=== PATIENT | female | born 1990 | race African-American/Black ===

== ENCOUNTER 2017-07-30 11:38 | Emergency (ER) | payer OTHER ==
[2017-07-30 11:45] VITALS: TEMP 98.8; BMI 26.6
--- NOTE | 2017-07-30 12:05 | PDOC ---
History of Present Illness - General Chief Complaint: Vaginal Bleeding Stated Complaint: VAGINAL BLEEDING (8 WKS ) Time Seen by Provider: 07/30/17 11:56 Exam Limitations: No Limitations - History of Present Illness Initial Comments: 07/30/17 12:05 26 yr female 1AB 1 ectopic 1 still born 9 months , history or herpes presents with vag bleeding and clots started 4 days ago. LMP 06/09/17. Pt had cramping 4 days ago none now. Past History - Past Medical History Allergies/Adverse Reactions: Allergies Allergy/AdvReac Type Severity Reaction Status Date / Time No Known Allergies Allergy Verified 07/30/17 11:45 Home Medications: Ambulatory Orders NK [No Known Home Medication] 07/30/17 COPD: No Other medical history: [id number] 1 stillborn 9 months - Suicide/Smoking/Psychosocial Hx Smoking History: Never smoked Have you smoked in the past 12 months: No Information on smoking cessation initiated: No Hx Alcohol Use: No Drug/Substance Use Hx: No Substance Use Type: None Abd/GI Specific PMHX - Complaint Specific PMHX Colitis: No Diverticulitis: No Gall Bladder Disease: No GERD: No Hepatitis: No Irritable Bowel Synd (IBS): No Pancreatitis: No GI Ulcer Disease: No Review of Systems - Review of Systems Able to Perform ROS?: Yes Is the patient limited Mongolian proficient: No Constitutional: No: Symptoms Reported HEENTM: No: Symptoms Reported Respiratory: No: Symptoms reported Cardiac (ROS): No: Symptoms Reported ABD/GI: Yes: Symptoms Reported : No: Symptoms Reported, Flank Pain *Physical Exam - Vital Signs Last Vital Signs Temp Pulse Resp BP Pulse Ox 98.8 F 80 18 127/79 100 07/30/17 11:41 07/30/17 11:41 07/30/17 11:41 07/30/17 11:41 07/30/17 11:41 - Physical Exam General Appearance: Yes: Nourished, Appropriately Dressed HEENT: positive: EOMI, ADELSO Neck: positive: Supple Respiratory/Chest: positive: Lungs Clear, Normal Breath Sounds Cardiovascular: positive: Regular Rhythm, Regular Rate Female Pelvic Exam: positive: normal external exam, adnexal tenderness, vaginal bleeding (brown blood light flow, spotting ). negative: CMT Gastrointestinal/Abdominal: positive: Normal Bowel Sounds, Tender (suprapubic tender to touch ) Musculoskeletal: positive: Normal Inspection Extremity: positive: Normal Capillary Refill, Normal Inspection, Normal Range of Motion Integumentary: positive: Normal Color, Dry, Warm Neurologic: positive: Fully Oriented, Alert, Normal Mood/Affect, Normal Response , Motor Strength /5 Medical Decision Making - Medical Decision Making 07/30/17 12:09 cc: vag bleeding had clots 4 days ago LMP 06/09/17 states light cramping 4 days ago no back pain or abd pain now will check labs, pelvic US r/o miscarriage
[2017-07-30 12:36] LABS: BASO % 0.7 % (0-2.0); EOS % 1.4 % (0-4.5); HEMATOCRIT 32.8 % (32.4-45.2); HEMOGLOBIN 11.2 GM/dL (10.7-15.3); LYMPH % 31.6 % (8-40); MEAN CELL VOLUME 76.3 fl (80-96); MEAN PLT VOLUME 8.1 fl (7.5-11.1); MONO % 7.9 % (3.8-10.2); NEUT % 58.4 % (42.8-82.8); PLATELET COUNT 288 K/MM3 (134-434); RBC 4.29 M/mm3 (3.60-5.2); RDW 17.2 % (11.6-15.6); WHITE BLOOD COUNT 9.1 K/mm3 (4.0-10.0)
[2017-07-30 12:41] LABS: HCG,QUALITATIVE URINE POSITIVE
[2017-07-30 12:46] LABS: URINE APPEARANCE CLEAR; URINE BILIRUBIN NEGATIVE (NEGATIVE); URINE BLOOD 2+ (NEGATIVE); URINE COLOR LTYELLOW; URINE GLUCOSE (UA) NEGATIVE (NEGATIVE); URINE KETONE NEGATIVE (NEGATIVE); URINE NITRITE NEGATIVE (NEGATIVE); URINE PROTEIN NEGATIVE (NEGATIVE); URINE UROBILINOGEN NEGATIVE mg/dL (0.2-1.0)
[2017-07-30 12:48] LABS: INR 1.25 (0.82-1.09); PROTHROMBIN TIME (PATIENT) 14.1 SEC (9.98-11.88)
[2017-07-30 12:52] LABS: URINE LEUK ESTERASE 1+ (NEGATIVE)
[2017-07-30 14:29] LABS: EPI CELLS RARE /HPF (FEW); URINE BACTERIA RARE /hpf (NONE SEEN); URINE MUCUS RARE
[2017-07-30 15:10] VITALS: BP 115/71; PULSE 83
--- NOTE | 2017-07-30 15:55 | PDOC ---
*Physical Exam - Vital Signs Last Vital Signs Temp Pulse Resp BP Pulse Ox 98.8 F 83 18 115/71 100 07/30/17 11:41 07/30/17 15:09 07/30/17 15:09 07/30/17 15:09 07/30/17 15:09 ED Treatment Course - LABORATORY CBC & Chemistry Diagram: 07/30/17 12:12 - ADDITIONAL ORDERS Additional order review: Laboratory Results 07/30/17 07/30/17 07/30/17 14:30 12:12 12:12 PT with INR INR Beta HCG, Quant 28113.7 Urine Color Ltyellow Urine Appearance Clear Urine pH 6.0 Ur Specific Mears 1.013 Urine Protein Negative Urine Glucose (UA) Negative Urine Ketones Negative Urine Blood 2+ H Urine Nitrite Negative Urine Bilirubin Negative Urine Urobilinogen Negative Ur Leukocyte Esterase 1+ H Urine WBC (Auto) 5 Urine RBC (Auto) 2 Ur Epithelial Cells Rare Urine Bacteria Rare Urine Mucus Rare Urine HCG, Qual Positive Blood Type O POSITIVE Antibody Screen Negative 07/30/17 12:12 PT with INR 14.10 H INR 1.25 H Beta HCG, Quant Urine Color Urine Appearance Urine pH Ur Specific Mears Urine Protein Urine Glucose (UA) Urine Ketones Urine Blood Urine Nitrite Urine Bilirubin Urine Urobilinogen Ur Leukocyte Esterase Urine WBC (Auto) Urine RBC (Auto) Ur Epithelial Cells Urine Bacteria Urine Mucus Urine HCG, Qual Blood Type Antibody Screen 07/30/17 12:12 RBC 4.29 MCV 76.3 L MCHC 34.0 RDW 17.2 H MPV 8.1 Neutrophils % 58.4 Lymphocytes % 31.6 Monocytes % 7.9 Eosinophils % 1.4 Basophils % 0.7 Medical Decision Making - Medical Decision Making 07/30/17 15:53 Patient seen and evaluated with the nurse practitioner. I agree with the overall evaluation, assessment, and management with the following summary of visit: 26-year-old female LMP about, presents for evaluation of vaginal bleeding. Agree with exam as outlined Plan was for hCG, type and screen, ultrasound. Rh+, hCG 58,000, but ultrasound shows echogenic tissue without clear gestational sac or yolk sac, possibly concerning for molar requiring follow-up hCG and ultrasonography. Discussed with patient, will arrange follow-up at to [facility], understands return criteria. *DC/Admit/Observation/Transfer Diagnosis at time of Disposition: Molar - Discharge Dispostion Disposition: HOME Condition at time of disposition: Good - Referrals - Patient Instructions Printed Discharge Instructions: DI for Vaginal Bleeding During Additional Instructions: Activity as tolerated. Stay hydrated. Tylenol 1000 mg every 8 hours and/or ibuprofen 600 mg every 8 hours as needed for pain. As discussed, the ultrasound performed today is inconclusive but could be concerning for a Molar , which is abnormal. A repeat hormone test and ultrasound needs to be performed within 48-72 hours. YOU HAVE AN APPOINTMENT AT [address] [place] [address] ON SUNDAY AT 8:30AM. If you cannot be seen there for any reason, return to the emergency department. You should follow up with [facility] as soon as possible regarding today's emergency department visit. Return to the emergency department for any new or concerning symptoms, particularly persistent or worsening bleeding, persistent or worsening pain, fevers or chills. - Post Discharge Activity
== END 2017-07-30 16:34 | disposition home or self-care (01) ==
LOC: JER 11:38
DX: O26.891 Other specified pregnancy related conditions, first trimester (principal); O20.0 Threatened abortion; O02.0 Blighted ovum and nonhydatidiform mole; Z3A.01 Less than 8 weeks gestation of pregnancy
CPT/HCPCS: 36415; 76817-TC; 81003; 81015; 84702; 84703; 85025; 85610; 86850; 86900; 86901; 99282-25

== ENCOUNTER 2017-07-30 23:41 | Emergency (ER) | payer OTHER ==
[2017-07-30 23:50] VITALS: BP 106/70; PULSE 87; TEMP 97.7; BMI 26.6
--- NOTE | 2017-07-31 00:49 | PDOC ---
History of Present Illness - General History Source: Patient Exam Limitations: No Limitations - History of Present Illness Initial Comments: 07/31/17 00:50 The patient is a 26 year old female, , approximately 6 weeks , who returns to the ED today for vaginal bleeding. The patient was seen in the ED earlier today. She had an US that demonstrated echogenic tissue without clear gestational sac or yolk sac, concerning for molar . She was discharged home to follow up with [facility]. The patient states she experienced a large amount of vaginal bleeding with large clots when she returned home. She became concerned and returned to the ED. <Kina Barnhart - Last Filed: 07/31/17 00:50> <Rosa Maria Nava - Last Filed: 07/31/17 01:12> - General Chief Complaint: Vaginal Bleeding Stated Complaint: VAGINAL BLEEDING ( 6 WKS ) Time Seen by Provider: 07/30/17 23:51 Past History <Kina Barnhart - Last Filed: 07/31/17 00:50> - Past Medical History COPD: No - Reproductive History (#): 4 Para: 0 Therapeutic (s) & number: Yes - Suicide/Smoking/Psychosocial Hx Smoking History: Unknown if ever smoked Have you smoked in the past 12 months: No Hx Alcohol Use: No Drug/Substance Use Hx: No Substance Use Type: None <Rosa Maria Nava - Last Filed: 07/31/17 01:12> - Past Medical History Allergies/Adverse Reactions: Allergies Allergy/AdvReac Type Severity Reaction Status Date / Time No Known Allergies Allergy Verified 07/30/17 11:45 Home Medications: Ambulatory Orders NK [No Known Home Medication] 07/30/17 Abd/GI Specific PMHX - Complaint Specific PMHX Colitis: No Diverticulitis: No Gall Bladder Disease: No GERD: No Hepatitis: No Irritable Bowel Synd (IBS): No Pancreatitis: No GI Ulcer Disease: No <Rosa Maria Nava - Last Filed: 07/31/17 01:12> Review of Systems - Review of Systems Able to Perform ROS?: Yes Comments:: 07/31/17 00:53 GENERAL/CONSTITUTIONAL: No fever or chills. No weakness. HEAD, EYES, EARS, NOSE AND THROAT: No change in vision. No ear pain or discharge. No sore throat. CARDIOVASCULAR: No chest pain or shortness of breath. RESPIRATORY: No cough, wheezing, or hemoptysis. GASTROINTESTINAL: No nausea, vomiting, diarrhea or constipation. GENITOURINARY: +Vaginal bleeding, suprapubic cramping. No dysuria, frequency, or change in urination. MUSCULOSKELETAL: No joint or muscle swelling or pain. No neck or back pain. SKIN: No rash NEUROLOGIC: No headache, vertigo, loss of consciousness, or change in strength/ sensation. ENDOCRINE: No increased thirst. No abnormal weight change. HEMATOLOGIC/LYMPHATIC: No anemia, easy bleeding, or history of blood clots. ALLERGIC/IMMUNOLOGIC: No hives or skin allergy. <Kina Barnhart - Last Filed: 07/31/17 00:50> *Physical Exam - Vital Signs Last Vital Signs Temp Pulse Resp BP Pulse Ox 97.7 F 87 18 106/70 99 07/30/17 23:49 07/30/17 23:49 07/30/17 23:49 07/30/17 23:49 07/30/17 23:49 - Physical Exam Comments: 07/31/17 00:55 GENERAL: Awake, alert, and fully oriented, in no acute distress HEAD: No signs of trauma EYES: PERRLA, EOMI, sclera anicteric, conjunctiva clear ENT: Auricles normal inspection, nares patent. Moist mucosa NECK: Normal ROM, supple, no JVD, or masses LUNGS: Breath sounds equal, clear to auscultation bilaterally. No wheezes, and no crackles HEART: Regular rate and rhythm, normal S1 and S2, no murmurs, rubs or gallops ABDOMEN: Soft, nontender, normoactive bowel sounds. No guarding, no rebound. No masses EXTREMITIES: Normal range of motion, no edema. No clubbing or cyanosis. No cords, erythema, or tenderness NEUROLOGICAL: Alert and oriented x 3. Moves all extremities. Face is symmetric. SKIN: Warm, Dry, normal turgor, no rashes or lesions noted. PELVIC: Small amount of blood in the vaginal vault, no clots. Cervical os is closed. No CMT or adnexal tenderness. <Kina Barnhart - Last Filed: 07/31/17 00:50> - Vital Signs Last Vital Signs Temp Pulse Resp BP Pulse Ox 97.7 F 87 18 106/70 99 07/30/17 23:49 07/30/17 23:49 07/30/17 23:49 07/30/17 23:49 07/30/17 23:49 <Rosa Maria Nava - Last Filed: 07/31/17 01:12> *DC/Admit/Observation/Transfer - Attestations Scribe Attestion: 07/31/17 00:57 Documentation prepared by Kina Barnhart, acting as medical record clerk for Rosa Maria Nava MD. <Kina Barnhart - Last Filed: 07/31/17 00:50> <Rosa Maria Nava - Last Filed: 07/31/17 01:12> Diagnosis at time of Disposition: Threatened , Molar - Discharge Dispostion Disposition: HOME Condition at time of disposition: Good - Patient Instructions Printed Discharge Instructions: DI for Threatened Additional Instructions: you need to go to the CLINIC at [address] [place] [address] on SUNDAY at 8:30 am and see the stock tracer
[2017-07-31] MEDS ORDERED: IBUPROFEN 600 MG TABLET (FP) PO ONE (01:13)
== END 2017-07-31 01:16 | disposition home or self-care (01) ==
LOC: JER 23:41
DX: O26.891 Other specified pregnancy related conditions, first trimester (principal); O20.8 Other hemorrhage in early pregnancy; Z3A.01 Less than 8 weeks gestation of pregnancy
CPT/HCPCS: 99282-25

== ENCOUNTER 2018-11-21 21:09 | Emergency (ER) | payer SELFPAY ==
[2018-11-21 21:16] VITALS: BP 116/80; PULSE 86; TEMP 98.6; BMI 31.6
[2018-11-21] MEDS ORDERED: AMOX TR/POT CLAV 875MG/125MG TABLETS (FP) PO ONE (22:41)
--- NOTE | 2018-11-21 22:50 | PDOC ---
History of Present Illness - General Chief Complaint: Toothache Stated Complaint: SWELLING IN FACE Time Seen by Provider: 11/21/18 22:34 History Source: Patient - History of Present Illness Initial Comments: 11/21/18 22:40 27 year old female c/o right sided facial swelling and pain . reports that pain started when she was brushing her teeth now with increased swelling. no trismus. Past History - Past Medical History Allergies/Adverse Reactions: Allergies Allergy/AdvReac Type Severity Reaction Status Date / Time No Known Allergies Allergy Verified 11/21/18 21:17 Home Medications: Ambulatory Orders Amoxicillin/Potassium Clav [Augmentin 875-125 Tablet] 1 each PO BID #20 tablet 11/21/18 Ibuprofen 800 mg PO QID PRN #20 tablet 11/21/18 Oxycodone HCl/Acetaminophen [Percocet 5-325 mg Tablet] 1 tab PO Q6H PRN #10 tablet MDD 4 11/21/18 COPD: No - Reproductive History (#): 4 Para: 0 Therapeutic (s) & number: Yes - Suicide/Smoking/Psychosocial Hx Smoking History: Never smoked Have you smoked in the past 12 months: No Hx Alcohol Use: No Drug/Substance Use Hx: No Substance Use Type: None Review of Systems - Review of Systems Able to Perform ROS?: Yes Is the patient limited Portuguese proficient: No *Physical Exam - Vital Signs Last Vital Signs Temp Pulse Resp BP Pulse Ox 98.6 F 86 18 116/80 99 11/21/18 21:14 11/21/18 21:14 11/21/18 21:14 11/21/18 21:14 11/21/18 21:14 - Physical Exam General Appearance: Yes: Appropriately Dressed HEENT: positive: Pharynx Normal, Other (right lower molar / gum swelling. right sided facial swelling. ). negative: Excessive drooling Neck: positive: Lymphadenopathy (R) *DC/Admit/Observation/Transfer Diagnosis at time of Disposition: Dental abscess - Discharge Dispostion Disposition: HOME - Prescriptions Prescriptions: Amoxicillin/Potassium Clav [Augmentin 875-125 Tablet] 1 each PO BID #20 tablet Ibuprofen 800 mg PO QID PRN #20 tablet PRN Reason: Pain Oxycodone HCl/Acetaminophen [Percocet 5-325 mg Tablet] 1 tab PO Q6H PRN #10 tablet MDD 4 PRN Reason: Pain - Referrals - Patient Instructions Printed Discharge Instructions: DI for Tooth Abscess Additional Instructions: Take ibuprofen as prescribed. Follow-up with a dentist tomorrow Take Percocet for severe pain. This medication can make you sleepy. Return to the emergency room for any worsening symptoms. - Post Discharge Activity Forms/Work/School Notes: Back to Work
[2018-11-21] MEDS ORDERED: AMOX TR/POT CLAV 875MG/125MG TABLETS (FP) ONE (22:52)
== END 2018-11-21 22:58 | disposition home or self-care (01) ==
LOC: JERFT 21:09
DX: K04.7 Periapical abscess without sinus (principal)
CPT/HCPCS: 99281-25

== ENCOUNTER 2018-11-26 04:51 | Emergency (ER) | payer OTHER ==
--- NOTE | 2018-11-26 05:21 | PDOC ---
History of Present Illness - General Chief Complaint: Rash Stated Complaint: ALLERGIC RX Time Seen by Provider: 11/26/18 05:15 History Source: Patient - History of Present Illness Initial Comments: 11/26/18 05:54 27 year old female recently on Augmentin for dental infection 2 days ago noted rash that is worsening over the last two days. rash now to spread to entire body. patient reports that she stopped the augmentin when the rash started. facial swelling dental pain has imporved and patient has an appointment with dentist today. feels lip is swollen. no tongue swelling no respiratory symptoms. no past medical history Past History - Past Medical History Allergies/Adverse Reactions: Allergies Allergy/AdvReac Type Severity Reaction Status Date / Time No Known Allergies Allergy Verified 11/26/18 05:33 Home Medications: Ambulatory Orders Amoxicillin/Potassium Clav [Augmentin 875-125 Tablet] 1 each PO BID #20 tablet 11/21/18 Ibuprofen 800 mg PO QID PRN #20 tablet 11/21/18 Oxycodone HCl/Acetaminophen [Percocet 5-325 mg Tablet] 1 tab PO Q6H PRN #10 tablet MDD 4 11/21/18 Diphenhydramine HCl [Benadryl -] 25 mg PO Q8H PRN #21 capsule 11/26/18 Ranitidine HCl [Zantac] 150 mg PO BID #30 tablet 11/26/18 predniSONE [Deltasone -] 40 mg PO DAILY #6 tablet 11/26/18 COPD: No - Reproductive History (#): 4 Para: 0 Therapeutic (s) & number: Yes - Suicide/Smoking/Psychosocial Hx Smoking History: Never smoked Have you smoked in the past 12 months: No Hx Alcohol Use: No Drug/Substance Use Hx: No Substance Use Type: None Review of Systems - Review of Systems Able to Perform ROS?: Yes Is the patient limited Serbian proficient: No Constitutional: No: Symptoms Reported, See HPI, Chills, Diaphoresis, Fever, Loss of Appetite, Malaise, Night Sweats, Weakness, Weight Stable, Unintentional Wgt. Loss, Unexplained wgt Loss, Other Integumentary: Yes: Pruritus, Rash *Physical Exam - Vital Signs 11/26/18 05:58 Last Vital Signs Temp Pulse Resp BP Pulse Ox 98.3 F 102 H 17 147/67 99 11/26/18 04:51 11/26/18 04:51 11/26/18 04:51 11/26/18 04:51 11/26/18 04:51 - Physical Exam General Appearance: Yes: Appropriately Dressed HEENT: positive: Other ([place] midline. no oral swelling. lip normal sized, + right molar tooth decay, ) Neck: positive: Supple Respiratory/Chest: positive: Lungs Clear, Normal Breath Sounds Cardiovascular: positive: Regular Rhythm, Regular Rate Gastrointestinal/Abdominal: positive: Normal Bowel Sounds, Soft. negative: Tender Extremity: positive: Normal Capillary Refill, Normal Inspection, Normal Range of Motion, Other (maculopapular rash to trunk, legs, arms. ) Integumentary: positive: Normal Color, Dry, Warm Neurologic: positive: Fully Oriented, Alert, Normal Mood/Affect Medical Decision Making - Medical Decision Making 11/26/18 05:59 A: allergic reaction P: benadryl prednisone 11/26/18 20:55 called patient Patient reports that she is feeling a lot better right now Rash is improved. *DC/Admit/Observation/Transfer Diagnosis at time of Disposition: Allergic reaction to Augmentin - Discharge Dispostion Disposition: HOME Condition at time of disposition: Fair - Prescriptions Prescriptions: Diphenhydramine HCl [Benadryl -] 25 mg PO Q8H PRN #21 capsule PRN Reason: Allergies predniSONE [Deltasone -] 40 mg PO DAILY #6 tablet Ranitidine HCl [Zantac] 150 mg PO BID #30 tablet - Referrals - Patient Instructions Printed Discharge Instructions: DI for Adverse Drug Reaction -- Allergic Additional Instructions: please take benadryl every 8 hours as needed for itching take zantac as prescribed. take prednisone starting tomorrow. your first dose was given today. please follow up with the dentist today as per appointment for an alternative antibiotics if needed - Post Discharge Activity Forms/Work/School Notes: Back to Work
[2018-11-26] MEDS ORDERED: RANITIDINE HCL 150 MG TABLET (FP) PO ONE (05:22)
[2018-11-26] MEDS ORDERED: predniSONE 20 MG TABLET (UD) PO ONE (05:22)
[2018-11-26 05:32] VITALS: TEMP 98.3; BMI 29.9
[2018-11-26] MEDS ORDERED: predniSONE 20 MG TABLET (UD) ONE (06:07)
[2018-11-26] MEDS ORDERED: RANITIDINE HCL 150 MG TABLET (FP) ONE (06:13)
[2018-11-26 06:31] VITALS: BP 151/73; PULSE 94
== END 2018-11-26 06:29 | disposition home or self-care (01) ==
LOC: JER 04:51
PROC: 3E0233Z Introduction of Anti-inflammatory into Muscle, Percutaneous Approach (ICD-10-PCS; principal; 2018-11-26)
DX: L27.0 Generalized skin eruption due to drugs and medicaments taken internally (principal); T36.0X5A Adverse effect of penicillins, initial encounter; Y92.038 Other place in apartment as the place of occurrence of the external cause
CPT/HCPCS: 96372; 99282-25

== ENCOUNTER 2020-03-02 23:39 | Emergency (ER) | payer OTHER ==
[2020-03-02 23:50] VITALS: BP 126/85; PULSE 89; TEMP 98.4; BMI 31.6
--- OUTSIDE RECORDS SUMMARY | 2020-03-03 | XMS ---
:[address] [facility] Support Name Relationship Address Phone LANDRY Unavailable Unavailable Unavailable ALONZO RODRIGUEZ FRIEND [address] [facility] [place] [address] Re-disclosure Warning The records that you are about to access may contain information from federally- assisted alcohol or drug abuse programs. If such information is present, then the following federally mandated warning applies: This information has been disclosed to you from records protected by federal confidentiality rules (42 CFR part 2). The federal rules prohibit you from making any further disclosure of this information unless further disclosure is expressly permitted by the written consent of the person to whom it pertains or as otherwise permitted by 42 CFR part 2. A general authorization for the release of medical or other information is NOT sufficient for this purpose. The Federal rules restrict any use of the information to criminally investigate or prosecute any alcohol or drug abuse patient.The records that you are about to access may contain highly sensitive health information, the redisclosure of which is protected by Article 27-F of the [facility] Public Health law. If you continue you may haveaccess to information: Regarding HIV / AIDS; Provided by facilities licensed or operated by the [facility] Office of Mental Health; or Provided by the [facility] Office for People With Developmental Disabilities. If such information is present, then the following [facility] mandated warning applies: This information has been disclosed to you from confidential records which are protected by state law. State law prohibits you from making any further disclosure of this information without the specific written consent of the person to whom it pertains, or as otherwise permitted by law. Any unauthorized further disclosure in violation of state law may result in a fine or intermediate sentence or both. A general authorization for the release of medical or other information is NOT sufficient authorization for further disclosure. Insurance Providers Payer name Policy type Policy ID Covered Covered democrat's Policy P jo / Coverage democrat ID relationship to [employer] ormation type [place] MED[place] [id number] SP [id number] SELF PAY SP INSURANCE
--- NOTE | 2020-03-03 00:46 | PDOC ---
History of Present Illness - General Chief Complaint: Pain, Acute Stated Complaint: FACIAL PAIN Time Seen by Provider: 03/03/20 00:33 History Source: Patient - History of Present Illness Initial Comments: 03/03/20 01:21 29-year-old from complaining of right lower molar pain and facial swelling for last 1 day. denies fever/ chills, difficulty breathing, Patient also reports that she is having vaginal discharge similar to when she had bacterial vaginosis. reports unprotected sex with same partner. 03/03/20 01:26 Past History - Medical History Allergies/Adverse Reactions: Allergies Allergy/AdvReac Type Severity Reaction Status Date / Time amoxicillin [From Augmentin] Allergy Verified 03/03/20 01:31 clavulanic acid Allergy Verified 03/03/20 01:31 [From Augmentin] Home Medications: Ambulatory Orders Amoxicillin/Potassium Clav [Augmentin 875-125 Tablet] 1 each PO BID #20 tablet 11/21/18 Ibuprofen 800 mg PO QID PRN #20 tablet 11/21/18 Oxycodone HCl/Acetaminophen [Percocet 5-325 mg Tablet] 1 tab PO Q6H PRN #10 tablet MDD 4 11/21/18 Diphenhydramine HCl [Benadryl -] 25 mg PO Q8H PRN #21 capsule 11/26/18 Ranitidine HCl [Zantac] 150 mg PO BID #30 tablet 11/26/18 predniSONE [Deltasone -] 40 mg PO DAILY #6 tablet 11/26/18 Clindamycin [Cleocin -] 300 mg PO Q6HPO #28 capsule 03/03/20 COPD: No - Reproductive History Is Patient Now?: No (#): 4 Para: 0 Therapeutic (s) & number: Yes - Psycho-Social/Smoking History Smoking History: Never smoked Have you smoked in the past 12 months: No Information on smoking cessation initiated: No - Substance Abuse Hx (Audit-C & DAST Scrn) How often the patient has a drink containing alcohol: Never Score: In Men: 4 or > Positive; In Women: 3 or > Positive: 0 Screen Result (Pos requires Nsg. Audit-10AR): Negative In the last yr the pt used illegal drug/Rx for NonMed reason: No Score: Yes response is considered Positive: 0 Screen Result (Positive result requires Nsg. DAST-10): Negative *Physical Exam - Vital Signs Last Vital Signs Temp Pulse Resp BP Pulse Ox 98.4 F 89 18 126/85 99 03/02/20 23:45 03/02/20 23:45 03/02/20 23:45 03/02/20 23:45 03/02/20 23:45 - Physical Exam General Appearance: Yes: Appropriately Dressed HEENT: positive: Other (right facial swelling, + right lower molar decay, no trismus, uvula midline, no drooling. ) Female Pelvic Exam: positive: normal external exam, normal adnexa, discharge, other (yellow/ white vaginal discharge, no cmt). negative: CMT Gastrointestinal/Abdominal: positive: Normal Bowel Sounds, Soft. negative: Tender Musculoskeletal: positive: Normal Inspection. negative: CVA Tenderness Integumentary: positive: Normal Color, Dry, Warm Neurologic: positive: Fully Oriented, Alert, Normal Mood/Affect, Normal Response Medical Decision Making - Medical Decision Making 03/03/20 01:30 A: dental infection; vaginal discharge P: ua + 2 leuks large epithelial cells. likely contaminant no urinary symptoms. outpatient dental follow up clindamycin 03/03/20 05:44 Discharge - Discharge Information Problems reviewed: Yes Clinical Impression/Diagnosis: Dental abscess, Bacterial vaginal infection Condition: Fair Disposition: HOME - Additional Discharge Information Prescriptions: Clindamycin [Cleocin -] 300 mg PO Q6HPO #28 capsule - Follow up/Referral - Patient Discharge Instructions Patient Printed Discharge Instructions: Tooth Decay - Post Discharge Activity
[2020-03-03] MEDS ORDERED: IBUPROFEN 600 MG TABLET (FP) PO ONE ×2 (00:53→01:09)
[2020-03-03 02:33] LABS: EPI CELLS >36 /uL (0-25.1); HYALINE CASTS 3 /uL (0-3.1); PH,URINE 6.5 (5.0-8.0); URINE APPEARANCE CLOUDY; URINE BACTERIA 1355 /uL (0-1359); URINE BILIRUBIN NEGATIVE (NEGATIVE); URINE COLOR YELLOW; URINE GLUCOSE (UA) NEGATIVE (NEGATIVE); URINE KETONE NEGATIVE (NEGATIVE); URINE LEUK ESTERASE 2+ (NEGATIVE); URINE NITRITE NEGATIVE (NEGATIVE); URINE PROTEIN NEGATIVE (NEGATIVE); URINE RBC 30 /uL (0-23.9); URINE WBC 54 /uL (0-25.8)
== END 2020-03-03 01:54 | disposition home or self-care (01) ==
LOC: JER 23:39
DX: K04.7 Periapical abscess without sinus (principal); N76.0 Acute vaginitis
CPT/HCPCS: 36415; 81003; 84703; 87070; 87077; 87086; 87205; 87491; 87591; 99283-25